=== PATIENT | female | born 1940 | race Two or more races ===

== ENCOUNTER 2024-12-18 18:28 | Inpatient (IN) | payer BC, OTHER ==
[~2024-12-18] VITALS: Ht 142.2 cm; Wt 73.1 kg
[2024-12-18] MEDS: FUROSEMIDE 40 MG/4 ML VIAL IV ONE (02:30)
--- NOTE | 2024-12-18 18:42 | ED.PDOC ---
History of Present Illness HPI Comments 84-year-old female brought in by ambulance after she had a ground level trip and fall outside and landed on the pavement. Patient complains of dull right shoulder and right knee pain. Patient bumped her forehead but denies loss of consciousness or headache or neck pain. Patient denies taking any blood thinn ers. Chief Complaint: Fall Injury Time Seen by MD: 18:32 Allergies: Coded Allergies: NO KNOWN ALLERGIES (Unverified , 12/18/24) Information Source: Patient, Emergency Med Personnel Mode of Arrival: EMS Severity: Moderate Timing: Minutes Duration: Since onset Past Medical History PAST MEDICAL HISTORY: Denies Social History Smoker: Non-Smoker Alcohol: Denies ETOH Use Drugs: Denies Drug Use EENTM: reports: others (Contusion/abrasion to forehead) Musculoskeletal: reports: others (Right shoulder pain and right knee pain) Integumetry: reports: others (Contusion and superficial abrasions to the right knee and right lower leg and forehead) All Other Systems: Reviewed and Negative Physical Exam General Appearance: Moderate Distress HEENT: Normal ENT Inspection, Pharynx Normal, TMs Normal Neck: Full Range of Motion, Non-Tender, Normal, Normal Inspection Respiratory: Chest Non-Tender, Lungs Clear, No Accessory Muscle Use, No Respiratory Distress, Normal Breath Sounds Cardiovascular: No Edema, No JVD, No Murmur, No Gallop, Normal Peripheral Pulses, Regular Rate/Rhythm Breast Exam: Deferred Gastrointestinal: No Organomegaly, Non Tender, No Pulsatile Mass, Normal Bowel Sounds, Soft Genitalia: Deferred Pelvic: Deferred Rectal: Deferred Extremities: Tender Musculoskeletal : Apperance: Normal Neurologic: Alert, practice lead II-XII nml as Tested, No Motor Deficits, Normal Affect, Normal Mood, No Sensory Deficits Cerebellar Function: Normal Reflexes: Normal Skin: Other (Contusions and abrasions to forehead, right knee and right lower leg) Lymphatic: No Adenopathy Was a procedure done? Was a procedure done?: No Differential Dx Considerations may include: Differential diagnosis includes but not limited to: Bony fracture, dislocation, neurovascular injury, compartment syndrome, intracranial injury and others X-Ray, Labs, Meds, VS Vital Signs Date Time Temp Pulse Resp B/P (MAP) Pulse Ox O2 Delivery O2 Flow Rate FiO2 12/18/24 20:34 76 18 128/76 (93) 98 12/18/24 20:34 98 Room Air* 0 21 12/18/24 18:31 98.4 65 18 173/83 94 98.4 Lab Test 12/18/24 19:48 Range/Units White Blood Count 6.1 4.4-10.8 10^3/uL Red Blood Count 4.17 4.0-5.20 10^6/uL Hemoglobin 13.4 12.2-16.2 g/dL Hematocrit 39.2 36.0-46.0 % Mean Corpuscular Volume 93.8 80.0-100.0 fL Mean Corpuscular Hemoglobin 32.1 H 28.0-32.0 pg Mean Corpuscular Hemoglobin Concent 34.2 32.0-36.0 g/dL Red Cell Distribution Width 13.9 11.8-14.3 % Platelet Count 240 140-450 10^3/uL Mean Platelet Volume 7.8 6.9-10.8 fL Neutrophils (%) (Auto) 68.3 37.0-80.0 % Lymphocytes (%) (Auto) 22.8 10.0-50.0 % Monocytes (%) (Auto) 6.5 0.0-12.0 % Eosinophils (%) (Auto) 1.3 0.0-7.0 % Basophils (%) (Auto) 1.1 0.0-2.0 % Neutrophils # (Auto) 4.1 1.6-8.6 10 ^3/uL Lymphocytes # (Auto) 1.4 0.4-5.4 10 ^3/uL Monocytes # (Auto) 0.4 0-1.3 10 ^3/uL Eosinophils # (Auto) 0.1 0-0.8 10 ^3/uL Basophils # (Auto) 0.1 0-0.2 10 ^3/uL Nucleated Red Blood Cells 0.1 % Prothrombin Time 10.7 9.3-11.8 sec Prothrombin Time INR 1.01 0.9-1.15 Activated Partial Thromboplast Time 32.5 24.5-34.5 SEC Sodium Level 134 L 136-145 mmol/L Potassium Level 3.9 3.5-5.1 mmol/L Chloride Level 97 L 98-107 mmol/L Carbon Dioxide Level 27 20-31 mmol/L Anion Gap 10 5-15 Blood Urea Nitrogen 15 9-23 mg/dL Creatinine 0.75 0.550-1.02 mg/dL Glomerular Filtration Rate Calc 78 >90 mL/min BUN/Creatinine Ratio 20.0 10.0-20.0 Serum Glucose 102 74-106 mg/dL Calcium Level 9.4 8.7-10.4 mg/dL Total Bilirubin 1.6 H 0.2-1.0 mg/dL Aspartate Amino Transferase (AST) 23 13-40 U/L Alanine Aminotransferase (ALT) 16 7-40 U/L Alkaline Phosphatase 69 46-116 U/L Total Protein 7.4 5.7-8.2 g/dL Albumin 4.4 3.2-4.8 g/dL Time of 1ST Reevaluation: 18:41 Reevaluation 1ST: Unchanged Patient Education/Counseling: Diagnosis, Treatment Family Education/Counseling: No Family Present SEPSIS Sepsis Screen Physician Orders R Shoulder 2+ View Xray (12/18/24 18:37) R Knee 3v Xray (12/18/24 18:37) Chest Portable (12/18/24 19:40) Electrocardigram (12/18/24 19:40) * Orthopedic Consult (12/18/24 19:40) Hydrocodone-Acet 10/325mg Tab ([place] 10/ (12/18/24 21:00) Vital Signs Date Time Temp Pulse Resp B/P (MAP) Pulse Ox O2 Delivery O2 Flow Rate FiO2 12/18/24 20:34 76 18 128/76 (93) 98 12/18/24 20:34 98 Room Air* 0 21 12/18/24 18:31 98.4 65 18 173/83 94 98.4 Laboratory Tests Test 12/18/24 19:48 White Blood Count 6.1 10^3/uL (4.4-10.8) Departure 1 Departure Time of Disposition: 20:56 Impression: Primary Impression: Closed fracture of right proximal humerus Additional Impressions: Head injury Contusion of right knee Disposition: HOME / SELF CARE / HOMELESS Condition: Stable Discharged With: Self Comments 84-year-old woman who fell and has a right proximal humerus shoulder fracture that is comminuted and the pieces are displaced out of the shoulder joint. Plan will be to admit the patient for pain control and preop clearance and consult orthopedics. I attempted to consult with orthopedic doctor Jael Critical Care Note Critical Care Time?: No Stability Stability form required: No Heart Score Heart Score: Heart Score Response (Comments) Value History N/A 0 EKG N/A 0 Age N/A 0 Risk Factors N/A 0 Troponin N/A 0 Total 0 YASMIN NEVAREZ MD Dec 18, 2024 18:42
--- NOTE | 2024-12-18 19:28 | DVH ---
CLINICAL INDICATION: pain s/p fall TECHNIQUE: XYXY R KNEE 3V XRAY Comparison: None FINDINGS/IMPRESSION: : There is no evidence of acute fracture or dislocation. Moderate to severe medial compartment degenerative changes with joint space narrowing and osteophytes. Soft tissues are unremarkable.
--- NOTE | 2024-12-18 19:29 | DVH ---
CLINICAL INDICATION: pain s/p fall TECHNIQUE: 3 radiographic views of the right shoulder were obtained. Comparison: None FINDINGS/IMPRESSION: Displaced comminuted fracture of the proximal right humerus questionable dislocation. Also appears to be a displaced fracture of the scapula.
[2024-12-18 19:59] LABS: Hematocrit 39.2 % (36.0-46.0); Hemoglobin 13.4 g/dL (12.2-16.2); Mean Corpuscular Hemoglobin 32.1 pg (28.0-32.0); Mean Corpuscular Volume 93.8 fL (80.0-100.0); Nucleated Red Blood Cells % 0.1 %
[2024-12-18 20:11] LABS: INR 1.01 (0.9-1.15); Partial Thromboplastin Time 32.5 SEC (24.5-34.5); Prothrombin Time 10.7 sec (9.3-11.8)
--- NOTE | 2024-12-18 20:18 | DVH ---
EXAM: XY CHEST PORTABLE HISTORY: chest pain TECHNIQUE: 1 view of the chest COMPARISON: XY R SHOULDER 2+ VIEW XRAY on DOS: 12/18/24 FINDINGS/IMPRESSION: LUNGS: Hazy alveolar opacification of the left lung base. Decreased lung volumes. Small possible left-sided pleural effusion. MEDIASTINUM: Mild possible cardiomegaly BONES: Transversely oriented proximal humeral head fracture, age-indeterminate. OTHER: None.
[2024-12-18 20:21] LABS: Alanine Aminotransferase 16 U/L (7-40); Albumin 4.4 g/dL (3.2-4.8); Alkaline Phosphatase 69 U/L (46-116); Anion Gap 10 (5-15); BUN/Creatinine Ratio 20.0 (10.0-20.0); Blood Urea Nitrogen 15 mg/dL (9-23); Calcium 9.4 mg/dL (8.7-10.4); Carbon Dioxide 27 mmol/L (20-31); Glucose 102 mg/dL (74-106); Potassium 3.9 mmol/L (3.5-5.1); Total Protein 7.4 g/dL (5.7-8.2)
[2024-12-18 20:34] VITALS: O2SAT 98
[2024-12-18 20:37] LABS: Bilirubin, Total 1.6 mg/dL (0.2-1.0); Chloride 97 mmol/L (98-107); Sodium 134 mmol/L (136-145)
[2024-12-18] MEDS: HYDROcodone-ACET 10/325MG TAB PO PRN (21:06)
[2024-12-18] MEDS ORDERED: ONDANSETRON HCL 4 MG/2 ML VIAL IV PRN (22:30)
--- NOTE | 2024-12-18 22:44 | DVHHPRES ---
History of Present Illness Resident Creating Document: ALOK WARNER RESIDENT History of Present Illness This is 84-year-old female with a past medical history of anxiety disorder, chronic back pain and GERD symptoms, who has come to the ED after a fall injury causing pain in her right shoulder. Patient reports that she tripped today afternoon in the parking curb and fell face forward, hitting her head on the sidewalk. She also reports that she had sudden sharp pain in her right shoulder which was 10/10 in intensity, radiating towards the elbow and back, with no relieving factors. she denies any dizziness before the fall but attributes the fall due to missed step and loss of concentration ( she was focused on her dog in the car getting out). post fall patient denies any loss of consciousness, dizziness, nausea, vomiting, change in mentation, chest pain, shortness of breath or tingling sensation in any extremity. On initial assessment patient's blood pressure was high 173/83 mmHg which decreased after a dose of [place] to 128/70 mmHg. Rest of the vitals are normal temp 98.4, HR 76, RR 18, SpO2 98% in room air. We are admitting the patient for further workup and management. PMH: As stated above PSH: Left shoulder surgery due to fall 3 years ago Social history: Patient denies smoking, alcohol or any illicit drug abuse. Lives with her Family history: 2 brothers had diabetes mellitus Home medications: Escitalopram for anxiety, furosemide, Protonix, aspirin 81 mg, [place] 5/325 mg Allergies: None PCP: Dr. Casanova (in [place]) Code status: Full code Review of Systems Constitutional: No: Fever, Chills, Sweats, Weakness, Malaise, Other Eyes: No: Pain, Vision change, Conjunctivae inflammation, Eyelid inflammation, Other, Redness ENT: No: Ear pain, Ear discharge, Nose pain, Nose discharge, Nose congestion, Mouth pain, Mouth swelling, Throat pain, Throat swelling, Other Respiratory: No: Cough, Dry, Shortness of breath, SOB with excertion, Wheezing, Hemoptysis, Pleuritic Pain, Sputum, Wheezing, Other Cardiovascular: No: Chest Pain, Palpitations, Orthopnea, Paroxysmal Noc. Dyspnea, Edema, Lt Headedness, Other Gastrointestinal: No: Nausea, Vomiting, Abdominal Pain, Diarrhea, Constipation, Melena, Hematochezia, Other Genitourinary: No Dysuria, No Frequency, No Incontinence, No Hematuria, No Retention, No Other Musculoskeletal: shoulder pain, back pain; No: other, neck pain, arm pain, hand pain, leg pain, foot pain Skin: No: Rash, Lesions, Jaundice, Bruising, Other Neurological: No: Weakness, Numbness, Incoordination, Change in speech, Confusion, Seizures, Other Allergies: Coded Allergies: NO KNOWN ALLERGIES (Unverified , 12/18/24) Medications Current Medications Medications Dose Ordered Sig/Moise Route Start Time Stop Time Status Last Admin Dose Admin Acetaminophen/ Hydrocodone Bitart 1 tab Q4HPRN PRN PO 12/18/24 21:00 12/18/24 21:06 1 TAB Ondansetron HCl 4 mg Q4HP PRN IV 12/18/24 22:30 UNV Acetaminophen/ Hydrocodone Bitart 1 tab Q4HPRN PRN PO 12/18/24 22:30 UNV Hydromorphone HCl 0.25 mg Q4HPRN PRN IV 12/18/24 22:30 UNV Citalopram Hydrobromide 10 mg DAILY PO 12/19/24 10:00 UNV Pantoprazole Sodium 40 mg DAILY IV 12/19/24 10:00 UNV Exam Vital Signs Vital Signs Date Time Temp Pulse Resp B/P (MAP) Pulse Ox O2 Delivery O2 Flow Rate FiO2 12/18/24 20:34 76 18 128/76 (93) 98 12/18/24 20:34 Room Air* 0 21 12/18/24 18:31 98.4 98.4 Exam Pt is lying on bed General Appearance: Alert, Oriented X3, Cooperative, in acute distress HEENT: Atraumatic, Mucous membranes moist/pink Respiratory: Clear to auscultation, Normal air movement, No added sounds Cardiovascular: Regular rate, Normal S1, Normal S2, No murmurs Abdominal: Active bowel sounds, Soft, no distention, no tenderness Extremities: No edema, Normal pulses, severe tenderness in the right shoulder, right arm and back on mild palpation Skin: No Significant rash, except past surgical scars Neuro: Normal speech, sensorimotor deficits none Psych/Mental Status: Mental status NL, Mood NL Labs/Xrays Labs Test 12/18/24 19:48 Range/Units White Blood Count 6.1 4.4-10.8 10^3/uL Red Blood Count 4.17 4.0-5.20 10^6/uL Hemoglobin 13.4 12.2-16.2 g/dL Hematocrit 39.2 36.0-46.0 % Mean Corpuscular Volume 93.8 80.0-100.0 fL Mean Corpuscular Hemoglobin 32.1 H 28.0-32.0 pg Mean Corpuscular Hemoglobin Concent 34.2 32.0-36.0 g/dL Red Cell Distribution Width 13.9 11.8-14.3 % Platelet Count 240 140-450 10^3/uL Mean Platelet Volume 7.8 6.9-10.8 fL Neutrophils (%) (Auto) 68.3 37.0-80.0 % Lymphocytes (%) (Auto) 22.8 10.0-50.0 % Monocytes (%) (Auto) 6.5 0.0-12.0 % Eosinophils (%) (Auto) 1.3 0.0-7.0 % Basophils (%) (Auto) 1.1 0.0-2.0 % Neutrophils # (Auto) 4.1 1.6-8.6 10 ^3/uL Lymphocytes # (Auto) 1.4 0.4-5.4 10 ^3/uL Monocytes # (Auto) 0.4 0-1.3 10 ^3/uL Eosinophils # (Auto) 0.1 0-0.8 10 ^3/uL Basophils # (Auto) 0.1 0-0.2 10 ^3/uL Nucleated Red Blood Cells 0.1 % Prothrombin Time 10.7 9.3-11.8 sec Prothrombin Time INR 1.01 0.9-1.15 Activated Partial Thromboplast Time 32.5 24.5-34.5 SEC Sodium Level 134 L 136-145 mmol/L Potassium Level 3.9 3.5-5.1 mmol/L Chloride Level 97 L 98-107 mmol/L Carbon Dioxide Level 27 20-31 mmol/L Anion Gap 10 5-15 Blood Urea Nitrogen 15 9-23 mg/dL Creatinine 0.75 0.550-1.02 mg/dL Glomerular Filtration Rate Calc 78 >90 mL/min BUN/Creatinine Ratio 20.0 10.0-20.0 Serum Glucose 102 74-106 mg/dL Calcium Level 9.4 8.7-10.4 mg/dL Total Bilirubin 1.6 H 0.2-1.0 mg/dL Aspartate Amino Transferase (AST) 23 13-40 U/L Alanine Aminotransferase (ALT) 16 7-40 U/L Alkaline Phosphatase 69 46-116 U/L Total Protein 7.4 5.7-8.2 g/dL Albumin 4.4 3.2-4.8 g/dL SEPSIS Sepsis Screen Date sepsis recognized/suspect: Dec 18, 2024 Time Sepsis recognized/suspect: 1830 Recent Procedure: No On Antibiotic Therapy: No Respiratory Rate >20: No Heart Rate >90: No Temp<36 C (96.8 F) or >38.3 C: No SBP <90 or MAP <65 mmHG: No New Acute Mental Status Change: No Is the patient on CPAP, BIPAP,: No Physician Orders R Shoulder 2+ View Xray (12/18/24 18:37) R Knee 3v Xray (12/18/24 18:37) Chest Portable (12/18/24 19:40) Electrocardigram (12/18/24 19:40) * Orthopedic Consult (12/18/24 19:40) Hydrocodone-Acet 10/325mg Tab ([place] 10/ (12/18/24 21:00) Admit (12/18/24 22:23) Code Status (12/18/24 22:23) Ondansetron Hcl (Zofran) (12/18/24 22:30) Complete Blood Count (12/19/24 04:00) Comprehensive Metabolic Panel (12/19/24 04:00) Npo (Nothing By Mouth) Diet (12/19/24 Breakfast) Condition: Unstable (12/18/24 22:23) Hydrocodone-Acet 5/325mg Tab ([place] 5/32 (12/18/24 22:30) Hydromorphone Injection (Dilaudid Inject (12/18/24 22:30) Hydromorphone Injection (Dilaudid Inject (12/18/24 22:30) Furosemide Injection (Lasix Injection) (12/18/24 22:30) B-Type Natriuretic Peptide (12/18/24 22:23) Citalopram Tablet (Celexa Tablet) (12/19/24 10:00) Pantoprazole (Protonix) (12/18/24 22:30) Pantoprazole (Protonix) (12/19/24 10:00) Urinalysis (12/18/24 22:23) Head Without Contrast (12/18/24 22:23) Electrocardigram (12/18/24 22:23) Echo 2d Mode Cardiac Dop (12/18/24 22:23) Type And Screen (12/18/24 22:23) Vital Signs Date Time Temp Pulse Resp B/P (MAP) Pulse Ox O2 Delivery O2 Flow Rate FiO2 12/18/24 20:34 76 18 128/76 (93) 98 12/18/24 20:34 98 Room Air* 0 21 12/18/24 18:31 98.4 65 18 173/83 94 98.4 Laboratory Tests Test 12/18/24 19:48 White Blood Count 6.1 10^3/uL (4.4-10.8) Medications Medications Dose Ordered Sig/Moise Route Start Time Stop Time Status Last Admin Dose Admin Acetaminophen/ Hydrocodone Bitart 1 tab Q4HPRN PRN PO 12/18/24 21:00 12/18/24 21:06 1 TAB Assessment/Plan Assessment/Plan #Displaced comminuted fracture of proximal right humerus S/P mechanical fall #Displaced fracture of the scapula S/P mechanical fall -x-ray right shoulder shows Displaced comminuted fracture of the proximal right humerus questionable dislocation. Also appears to be a displaced fracture of the scapula. -X-ray knee shows Moderate to severe medial compartment degenerative changes with joint space narrowing and osteophytes. -PT 10.7, INR 1.01, APTT 32.5 -type and crossmatch -NPO status -CT head -orthopedic consult -patient in pain, unable to mobilize much-Nagy's catheter placed #Small left-sided pleural effusion -Chest x-ray shows: Hazy alveolar opacification of the left lung base. Decreased lung volumes and Small left-sided pleural effusion -IV furosemide 40 mg -EKG -BNP #Hyperbilirubinemia -total bilirubin 1.6 -monitor #Hypertension - blood pressure normal now, patient does not take home medications #Obesity, BMI 31.4 kg/m2 - patient has been counseled regarding the need of weight loss, healthier lifestyle, dietary modification for over it minutes GI prophylaxis: Protonix 40 mg IV daily DVT prophylaxis: Held for now as there may be possible surgery Diet: NPO Goals of care discussed with the patient for more than 27 minutes: Full code status Case discussed with , patient Plan discussed with: Patient My Orders Orders - ALOK WARNER RESIDENT Procedure Category Date Status Time Admit ADMIT 12/18/24 Transmitted 22:23 Code Status CODE 12/18/24 Transmitted 22:23 Ondansetron Hcl PHA 12/18/24 Logged (Zofran) 22:30 Complete Blood Count LAB 12/19/24 Verified 04:00 Comprehensive LAB 12/19/24 Verified Metabolic Panel 04:00 Npo (Nothing By DIET 12/19/24 Transmitted Mouth) Diet Breakfast Condition: Unstable DYLAN 12/18/24 In Process 22:23 Hydrocodone-Acet PHA 12/18/24 Logged 5/325mg Tab ([place] 22:30 Hydromorphone PHA 12/18/24 Logged Injection (Dilaudid 22:30 Hydromorphone PHA 12/18/24 Logged Injection (Dilaudid 22:30 Furosemide Injection PHA 12/18/24 Logged (Lasix Injection) 22:30 B-Type Natriuretic LAB 12/18/24 Logged Peptide 22:23 Citalopram Tablet PHA 12/19/24 Logged (Celexa Tablet) 10:00 Pantoprazole PHA 12/18/24 Logged (Protonix) 22:30 Pantoprazole PHA 12/19/24 Logged (Protonix) 10:00 Urinalysis LAB 12/18/24 Logged 22:[address] 12/18/24 Logged 22:23 Electrocardigram EKG 12/18/24 Logged 22:23 Echo 2d Mode Cardiac US 12/18/24 Logged DOP 22:23 Type And Screen BBK 12/18/24 Logged 22:23 Date of Service: Dec 18, 2024 Billing Provider: TIERA MANCINI MD Common Visit Codes: [id number] INP/OBS CARE (HIGH) Secondary Visit Codes: [id number] CARE PLAN 30 MINUTES ALOK WARNER Dec 18, 2024 22:44
--- NOTE | 2024-12-18 23:43 | DVH ---
CLINICAL HISTORY: head injury TECHNIQUE: Helical imaging carried out from skull base to vertex without intravenous contrast. This exam was performed according to our departmental dose optimization program. Up-to-date CT equipment and radiation dose reduction techniques are utilized as appropriate. CTDIVol: 52.03 mGy DLP: 863.9 mGy-cm WID: COMPARISON: None FINDINGS: Generalized cerebral volume loss with concordant prominence of the subarachnoid spaces and ventricles. Mild patchy low attenuation in the cerebral white matter consistent with nonspecific white matter disease. There is no midline shift or mass effect. The gore white matter interfaces are maintained. The basal cisterns are patent. There is no evidence of acute intracranial hemorrhage or extra-axial fluid collection. The mastoid air cells and visualized paranasal sinuses are well-aerated. IMPRESSION: 1. No acute intracranial abnormality. 2. Mild cerebral volume loss and mild chronic microvascular ischemic change.
[2024-12-18] MEDS: HYDROmorphone HCL 2 MG/ML VL/or syr IV ONE (23:45)
[2024-12-18] MEDS: PANTOPRAZOLE 40 MG/10 ML VIAL INJ IV ONE (23:57)
[2024-12-19] VITALS (7 sets, daily range): BP systolic 107–156; BP diastolic 46–82; PULSE 64–71; RESP 15–18; TEMP 97.5–98.6; O2SAT 90–98
[2024-12-19] MEDS: HYDROcodone-ACET 10/325MG TAB PO PRN (01:39)
[2024-12-19 03:19] LABS: Urine Protein, UAD Negative (Negative)
[2024-12-19] MEDS ORDERED: ASPI81CH49 PO (03:43)
[2024-12-19] MEDS ORDERED: ESCI1TAB36 PO (03:43)
[2024-12-19] MEDS ORDERED: SIMV20TA20 PO (03:43)
[2024-12-19] MEDS ORDERED: HYDR1TAB97 PO (03:43)
[2024-12-19] MEDS: HYDROmorphone HCL 2 MG/ML VL/or syr IV PRN (04:03)
[2024-12-19 06:01] LABS: Hematocrit 35.5 % (36.0-46.0); Hemoglobin 12.2 g/dL (12.2-16.2); Mean Corpuscular Hemoglobin 32.2 pg (28.0-32.0); Mean Corpuscular Volume 93.7 fL (80.0-100.0); Nucleated Red Blood Cells % 0.1 %
[2024-12-19 06:33] LABS: Alanine Aminotransferase 14 U/L (7-40); Albumin 4.0 g/dL (3.2-4.8); Alkaline Phosphatase 60 U/L (46-116); Anion Gap 9 (5-15); BUN/Creatinine Ratio 19.2 (10.0-20.0); Blood Urea Nitrogen 14 mg/dL (9-23); Calcium 8.8 mg/dL (8.7-10.4); Carbon Dioxide 28 mmol/L (20-31); Potassium 3.9 mmol/L (3.5-5.1); Total Protein 6.6 g/dL (5.7-8.2)
[2024-12-19 06:34] LABS: Bilirubin, Total 2.1 mg/dL (0.2-1.0); Chloride 96 mmol/L (98-107); Glucose 111 mg/dL (74-106); Sodium 133 mmol/L (136-145)
[2024-12-19] MEDS: PANTOPRAZOLE 40 MG/10 ML VIAL INJ IV SCH (09:26)
[2024-12-19] MEDS: CITALOPRAM HYDROBR 20 MG TAB PO SCH (09:26)
--- NOTE | 2024-12-19 12:29 | DVH ---
CLINICAL INDICATION: preop planning TECHNIQUE: Noncontrast CT of the right shoulder was performed. Sagittal and coronal reformatted images are provided. COMPARISON: Radiograph of the right shoulder dated 12/18/2024. CT Dose: CTDI volume is 18.92 mGy. Dose-length product is 479.84 mGy*cm FINDINGS: There is an acute comminuted fracture through the proximal humerus. The fracture involves the greater tuberosity, surgical and anatomical neck of the humerus and the lesser tuberosity. The fractured humeral head remains articulated with the glenoid without dislocation. Mild inferior subluxation of the humeral head relative to the glenoid due to joint effusions/hemoarthrosis. There is acromioclavicular joint space narrowing. Soft tissue swelling in the right shoulder. Small right pleural effusion. Visualized Right-sided ribs are intact. IMPRESSION: 1. Acute comminuted fracture of the proximal humerus involving the greater and lesser tuberosities, surgical and anatomical necks. No dislocation. All CT scans at this medical facility are performed using dose modulation techniques as appropriate to a performed exam including the following: Automated exposure control was utilized; adjustment of the MA and/or KV according to patient size; and use of iterative reconstruction technique.
--- NOTE | 2024-12-19 13:32 | DVHPN2 ---
Reviewed: Care Plan, H&P, Labs, Medications, Previous Orders, Radiology Changes from previous H/P or p: No Changes Eyes: No Pain, No Vision change, No Conjunctivae inflammation, No Eyelid inflammation, No Other, No Redness ENT: No Ear pain, No Ear discharge, No Nose pain, No Nose discharge, No Nose congestion, No Mouth pain, No Mouth swelling, No Throat pain, No Throat swelling, No Other Cardiovascular: No Chest Pain, No Palpitations, No Orthopnea, No Paroxysmal Noc. Dyspnea, No Edema, No Lt Headedness, No Other Respiratory: No Cough, No Dry, No Shortness of breath, No SOB with excertion, No Wheezing, No Hemoptysis, No Pleuritic Pain, No Sputum, No Other Gastrointestinal: No Nausea, No Vomiting, No Abdominal Pain, No Diarrhea, No Constipation, No Melena, No Hematochezia, No Other Genitourinary: No Dysuria, No Frequency, No Incontinence, No Hematuria, No Retention, No Other Musculoskeletal: No other, No neck pain; shoulder pain; No arm pain; back pain; No hand pain, No leg pain, No foot pain Skin: No Rash, No Lesions, No Jaundice, No Bruising, No Other Objective Vitals Vital Signs Date Time Temp Pulse Resp B/P (MAP) Pulse Ox O2 Delivery O2 Flow Rate FiO2 12/19/24 09:26 84 18 124/63 12/19/24 09:00 98.6 92 98.6 12/19/24 00:45 Room Air* 0 21 Intake/Output Intake and Output 12/19/24 07:00 Intake Total 100 ml Output Total 750 ml Balance -650 ml Intake Oral 100 ml Output Urine Total 750 ml Medications Current Medications Medications Dose Ordered Sig/Moise Route Start Time Stop Time Status Last Admin Dose Admin Ondansetron HCl 4 mg Q4HP PRN IV 12/18/24 22:30 Acetaminophen/ Hydrocodone Bitart 1 tab Q4HPRN PRN PO 12/18/24 22:30 Hydromorphone HCl 0.25 mg Q4HPRN PRN IV 12/18/24 22:30 12/19/24 09:26 0.25 MG Citalopram Hydrobromide 10 mg DAILY PO 12/19/24 10:00 12/19/24 09:26 10 MG Pantoprazole Sodium 40 mg DAILY IV 12/19/24 10:00 12/19/24 09:26 40 MG Acetaminophen/ Hydrocodone Bitart 1 tab Q4HPRN PRN PO 12/18/24 23:00 12/19/24 11:13 1 TAB Laboratory Results Laboratory Tests 12/19/24 05:28 Chemistry Test 12/18/24 19:48 12/19/24 05:28 Albumin 4.4 g/dL (3.2-4.8) 4.0 g/dL (3.2-4.8) Calcium Level 9.4 mg/dL (8.7-10.4) 8.8 mg/dL (8.7-10.4) Total Protein 7.4 g/dL (5.7-8.2) 6.6 g/dL (5.7-8.2) Coagulation Test 12/18/24 19:48 Prothrombin Time 10.7 sec (9.3-11.8) Prothrombin Time INR 1.01 (0.9-1.15) Activated Partial Thromboplast Time 32.5 SEC (24.5-34.5) Cardiac Markers Test 12/18/24 19:48 B-Type Natriuretic Peptide 52.11 pg/mL (0-100) LFT Test 12/18/24 19:48 12/19/24 05:28 Alanine Aminotransferase (ALT) 16 U/L (7-40) 14 U/L (7-40) Alkaline Phosphatase 69 U/L (46-116) 60 U/L (46-116) Aspartate Amino Transferase (AST) 23 U/L (13-40) 18 U/L (13-40) Total Bilirubin 1.6 mg/dL (0.2-1.0) H 2.1 mg/dL (0.2-1.0) H Urinalysis Test 12/18/24 02:00 Urine Color Yellow (Yellow) Urine Clarity Clear (Clear) Urine pH 6.5 (5.0-9.0) Urine Specific [place] 1.021 (1.001-1.035) Urine Protein Negative (Negative) Urine Ketones 2+ (Negative) H Urine Blood Negative /uL (Negative) Urine Nitrite Negative (Negative) Urine Bilirubin Negative (Negative) Urine Urobilinogen Normal mg/dL (Negative) Urine Leukocyte Esterase Negative /uL (Negative) Urine RBC None seen /hpf (0 - 4) Urine Microscopic WBC < 1 /HPF (0-5) Urine Squamous Epithelial Cells None seen /hpf (<5) Urine Bacteria None seen /hpf (None Seen) Urine Glucose Normal mg/dL (Normal) Labs and/or images reviewed: Labs reviewed by me, Image(s) reviewed by me Assessment/Plan Assessment/Plan Acute displaced Community fracture proximal right humerus status post mechanical fall: Ortho consult by Dr. Elder appreciated pain medications Displaced fracture scapula status post fall Small left pleural effusion Hyperbilirubinemia bilirubin 1.6 Hypertension Depression: Celexa Obesity BMI of 46 Time spent 50 minutes Advanced care planning time 20 minutes Patient is full code Plan discussed with: Patient Date of Service: Dec 19, 2024 Billing Provider: VESTA PRIEST MD Common Visit Codes: [id number] INP/OBS CARE(HIGH) Secondary Visit Codes: [id number] CARE PLAN 30 MINUTES VESTA PRIEST MD Dec 19, 2024 13:32
[2024-12-19] MEDS: HYDROcodone-ACET 5/325MG TAB PO PRN (18:01)
--- NOTE | 2024-12-19 19:48 | DVHSR ---
APPROVED REPORT EXAM: Two-dimensional and M-mode echocardiogram with Doppler and color Doppler. Blood Pressure: 107/46 mmHg INDICATION Pulmonary Edema RISK FACTORS Height: 58, Weight: 208 DIMENSIONS LVDd 3.8 (3.8-5.7cm) LA (2D) 4.5 (1.9-4.0cm) Aortic Root 3.4 (2.0-3.7cm) LVDs 2.6 (2.5-4.0cm) LA (MM) (1.9-4.0cm) Aortic Cusp Exc 1.4 (1.5-2.0cm) EF (%) 63.0 (55-70%) Rt. Atrium 3.8 (1.9-4.0cm) Asc. Aorta cm IVSd 1.1 (0.7-1.1cm) RV (D) (1.8-2.4cm) PWd 0.8 (0.7-1.1cm) Mitral Valve Mitral Mitral Stenosis E wave 0.59m/s MV Mean GR. mmHg A wave 0.96m/s MV Peak GR. mmHg E/A ratio 0.6 2D MVA cm2 DECEL Time 253ms PRESS 1/2 Time 70ms IVRT ms Dop MVA 3.14cm2 Aortic Valve Aortic Valve Aortic Stenosis V1 1.51m/s AO Mean GR. 7mmHg V2 1.90m/s AO Peak GR. 14mmHg LVOT Diameter 1.8 (1.8-2.4cm) Doppler JAMAL 2.02cm2 Pulmonic Valve V2 1.63m/s Tricuspid Valve TR Velocity 2.69m/s RVSP 30mmHg Other Information Technically limited study due to body habitus. Conclusion Technically good study. Sinus rhythm. Left atrial enlargement. Mild mitral annular calcification. Normal aortic tricuspid and pulmonic valves. Left ventricular function is preserved at 65-70% with normal RV function. Mild TR. Right ventricular systolic pressure of 30 mmHg. No pericardial effusion masses or vegetations.
--- NOTE | 2024-12-19 20:01 | DVHINCON2 ---
Consult Note Consult Consult Note Subjective The patient was seen in the emergency room yesterday following a ground-level fall onto the right shoulder.Er physician completed X-rays demonstrated a comminuted proximal humerus fracture. The patient was admitted for pain control and orthopedic evaluation. Today, the patient was evaluated at bedside. Findings and treatment options were discussed in detail, including surgical versus nonsurgical management. Reverse total shoulder arthroplasty was recommended. Risks, benefits, alternatives, and complications of surgery were discussed exten sively with the patient, who verbalized understanding and consented to proceed. The patient reports history of hypertension, hyperlipidemia, anxiety, and GERD. Denies diabetes mellitus, anticoagulant use, or history of malignancy. Reports known osteoporosis. Objective General: Awake, alert, oriented 3. In mild distress due to pain. Right Upper Extremity: Visible swelling and ecchymosis over the proximal shoulder. Tenderness to palpation over the proximal humerus. Range of Motion: Severely limited at the right shoulder secondary to pain and fracture. Elbow, wrist, and hand ROM: Full and intact. Neurovascular Exam: Grossly intact distally; palpable radial pulse; capillary refill <2 sec. Axillary Nerve Exam: Sensation intact over the lateral deltoid region. Cardiopulmonary: Regular rate and rhythm; no respiratory distress. Abdomen: Soft, nontender. Extremities: No edema, no cyanosis. Imaging Right shoulder X-ray: Acute comminuted fracture of the proximal humerus involving the greater and lesser tuberosities, surgical and anatomical necks. No dislocation. ECHO: Completed today; pending final report for anesthesia clearance. Assessment: Right comminuted proximal humerus fracture , post ground-level fall. The patient is an appropriate candidate for reverse total shoulder arthroplasty (RTSA). Case discussed with sound effects person surgeon Dr. Rose who agrees with above plan Plan: 1. Surgical Management: Proceed with right reverse total shoulder arthroplasty with Dr. Rose tomorrow. 2. Pre-operative Preparation: DISCUSSED WITH BEDSIDE NURSE Patient NPO after midnight. ECHO and Clearence needed 3. DVT Prophylaxis: Hold anticoagulation today; sequential compression devices in use. 4. Pain Control: Continue current regimen; multimodal pain management. 5. Consent: Obtained after detailed discussion of procedure, alternatives, and all potential complications. Discussion of Surgical Risks (Reverse Total Shoulder Arthroplasty): The following risks, benefits, and alternatives were reviewed with the patient in detail: Common Risks: Pain, stiffness, and prolonged swelling Postoperative bleeding or hematoma Infection (superficial or deep prosthetic joint infection) Nerve injury (particularly axillary or musculocutaneous nerve) Blood vessel injury Prosthesis-related Risks: Dislocation or instability of the implant Loosening or mechanical failure of components Scapular notching Glenoid or humeral bone loss over time Periprosthetic fracture (intraoperative or postoperative) Systemic Risks: Deep vein thrombosis or pulmonary embolism Anesthetic complications (cardiac, pulmonary, allergic reactions) Wound-healing complications Chronic pain or incomplete recovery of range of motion Need for revision surgery in the future The patient demonstrated full understanding of the procedure and risks, and provided informed consent for surgery. Plan discussed with: Patient, Other (bedside nurse) Visit Coding Surgery Date of Service if different f: Dec 19, 2024 Billing Provider: GRISELDA BRAVO Surgery Visit Codes: 90193 - INP CONSULT <55 MIN GRISELDA BRAVO Dec 19, 2024 20:01
[2024-12-20] VITALS (13 sets, daily range): BP systolic 115–153; BP diastolic 65–79; PULSE 69–109; RESP 11–19; TEMP 98–98.9; O2SAT 87–97
[2024-12-20] MEDS: ceFAZolin 2 GM/D5W50ml 50 ML IV ONE (10:01)
--- NOTE | 2024-12-20 10:18 | DVHPN2 ---
Reviewed: Care Plan, H&P, Labs, Medications, Previous Orders, Radiology Changes from previous H/P or p: No Changes Eyes: No Pain, No Vision change, No Conjunctivae inflammation, No Eyelid inflammation, No Other, No Redness ENT: No Ear pain, No Ear discharge, No Nose pain, No Nose discharge, No Nose congestion, No Mouth pain, No Mouth swelling, No Throat pain, No Throat swelling, No Other Cardiovascular: No Chest Pain, No Palpitations, No Orthopnea, No Paroxysmal Noc. Dyspnea, No Edema, No Lt Headedness, No Other Respiratory: No Cough, No Dry, No Shortness of breath, No SOB with excertion, No Wheezing, No Hemoptysis, No Pleuritic Pain, No Sputum, No Other Gastrointestinal: No Nausea, No Vomiting, No Abdominal Pain, No Diarrhea, No Constipation, No Melena, No Hematochezia, No Other Genitourinary: No Dysuria, No Frequency, No Incontinence, No Hematuria, No Retention, No Other Musculoskeletal: No other, No neck pain; shoulder pain; No arm pain; back pain; No hand pain, No leg pain, No foot pain Skin: No Rash, No Lesions, No Jaundice, No Bruising, No Other Objective Vitals Vital Signs Date Time Temp Pulse Resp B/P (MAP) Pulse Ox O2 Delivery O2 Flow Rate FiO2 12/20/24 09:18 69 17 153/69 12/20/24 09:00 98.2 90 98.2 12/19/24 20:00 Nasal Cannula* 2 28 Intake/Output Intake and Output 12/20/24 07:00 Intake Total 1500 ml Output Total 750 ml Balance 750 ml Intake Oral 1500 ml Output Urine Total 750 ml Medications Current Medications Medications Dose Ordered Sig/Moise Route Start Time Stop Time Status Last Admin Dose Admin Ondansetron HCl 4 mg Q4HP PRN IV 12/18/24 22:30 Acetaminophen/ Hydrocodone Bitart 1 tab Q4HPRN PRN PO 12/18/24 22:30 12/19/24 18:01 1 TAB Hydromorphone HCl 0.25 mg Q4HPRN PRN IV 12/18/24 22:30 12/20/24 09:18 0.25 MG Citalopram Hydrobromide 10 mg DAILY PO 12/19/24 10:00 12/19/24 09:26 10 MG Pantoprazole Sodium 40 mg DAILY IV 12/19/24 10:00 12/20/24 08:59 40 MG Acetaminophen/ Hydrocodone Bitart 1 tab Q4HPRN PRN PO 12/18/24 23:00 12/20/24 07:48 1 TAB Laboratory Results Laboratory Tests 12/19/24 05:28 Urinalysis Test 12/18/24 02:00 Urine Color Yellow (Yellow) Urine Clarity Clear (Clear) Urine pH 6.5 (5.0-9.0) Urine Specific [place] 1.021 (1.001-1.035) Urine Protein Negative (Negative) Urine Ketones 2+ (Negative) H Urine Blood Negative /uL (Negative) Urine Nitrite Negative (Negative) Urine Bilirubin Negative (Negative) Urine Urobilinogen Normal mg/dL (Negative) Urine Leukocyte Esterase Negative /uL (Negative) Urine RBC None seen /hpf (0 - 4) Urine Microscopic WBC < 1 /HPF (0-5) Urine Squamous Epithelial Cells None seen /hpf (<5) Urine Bacteria None seen /hpf (None Seen) Urine Glucose Normal mg/dL (Normal) Labs and/or images reviewed: Labs reviewed by me, Image(s) reviewed by me Assessment/Plan Assessment/Plan Acute displaced Community fracture proximal right humerus status post mechanical fall: Patient getting reverse total shoulder arthroplasty (RTSA) by Dr Rose today. Displaced fracture scapula status post fall Small left pleural effusion Hyperbilirubinemia bilirubin 1.6 Hypertension Depression: Celexa Obesity BMI of 46 Time spent 50 minutes Advanced care planning time 20 minutes Patient is full code Plan discussed with: Patient Date of Service: Dec 20, 2024 Billing Provider: VESTA PRIEST MD Common Visit Codes: [id number] INP/OBS CARE(HIGH) VESTA PRIEST MD Dec 20, 2024 10:18
[2024-12-20] MEDS: VANCOMYCIN HCL 1000 MG VL ONE ×2 (12:00→12:38)
[2024-12-20] MEDS: ROPIVACAINE 0.5% (5MG/ML) 20ML AMPULE IJ ONE (12:00)
[2024-12-20] MEDS: BUPIVACAINE 0.25% INJ 50ML VIAL ONE (12:01)
[2024-12-20] MEDS ORDERED: MIDAZOLAM HCL 2MG/2ML 2ml VIAL (1mg/ml) ONE (12:02)
[2024-12-20] MEDS ORDERED: HYDROmorphone HCL 2 MG/ML VL/or syr ONE (12:02)
[2024-12-20] MEDS ORDERED: fentaNYL CITRATE 100 MCG/2 ML VL ONE ×2 (12:02→14:15)
[2024-12-20] MEDS ORDERED: ONDANSETRON HCL 4 MG/2 ML VIAL ONE (12:03)
[2024-12-20] MEDS: SUCCINYLCHOLINE CHLORIDE 20 MG/ML 10ML VIAL IV ONE (12:05)
[2024-12-20] MEDS ORDERED: MORPHINE SULF PF 5 MG/10 ML VIAL ONE (12:05)
[2024-12-20] MEDS ORDERED: KETOROLAC TROMETH 30 MG/ML 1ML VIAL ONE (12:05)
[2024-12-20] MEDS: CEFEPIME 1GM/50ML 50 ML IV ONE (12:25)
[2024-12-20] MEDS: TRANEXAMIC ACID 20 ML ONE (12:35)
[2024-12-20] MEDS ORDERED: MIDAZOLAM HCL 2MG/2ML 2ml VIAL (1mg/ml) IV PRN (13:15)
[2024-12-20] MEDS ORDERED: hydrALAZINE HCL 20 MG/ML VL IV PRN (13:15)
[2024-12-20] MEDS ORDERED: HYDROmorphone HCL 2 MG/ML VL/or syr IV PRN (13:15)
[2024-12-20] MEDS ORDERED: MORPHINE SULFATE 4 MG/ML SYR/VIAL IV PRN (13:15)
[2024-12-20] MEDS ORDERED: ONDANSETRON HCL 4 MG/2 ML VIAL IV PRN (13:15)
[2024-12-20] MEDS ORDERED: SUGAMMADEX 200mg/2ml Vial (100MG/ML) IV ONE (14:47)
[2024-12-20] MEDS ORDERED: ROCURONIUM 10MG/ML 10ML VIAL IV ONE (14:51)
--- NOTE | 2024-12-20 15:08 | DVHOP2 ---
Operative Report - 2 Report Details Date: 12/20/24 Preop Diagnosis: Right proximal humerus comminuted fracture Postop Diagnosis: Right proximal humerus comminuted fracture Surgeon: Shelley Rose MD Showroom Consultant: Mayra Humphrey, Physician Showroom Consultant Anesthesiologist: Dr Randolph Anesthesia: General Implant: Butler perform fracture stem size 1 36 mm glenosphere, 0 mm constrained liner, 25 mm base plate with central 35 mm screw and four peripheral screws. Consent: The patient was informed of the risks and benefits of the procedure. These include but are not limited to complications of anesthesia, postoperative infection, incomplete relief of symptoms, recurrence of symptoms, damage to blood vessels, nerves and tendons, deep venous thrombosis, pulmonary embolism and possible need for repeat surgery in the future. Complications: None Estimated Blood Loss: Less than 100 mL Indications for Surgery: The patient is an 84-year-old female who presented to the emergency room with a proximal comminuted head split fracture. Nonoperative and operative management options were discussed. Nonoperative management were thoroughly discussed and recommended as the 1st line of treatment. However patient mentioned that she is very active with minimal medical problems. Surgical complications including neurovascular injury, dislocation, periprosthetic fracture at her age, loss of limb or life was explicitly discussed. Inability to wake up from anesthesia, on the table and very high risk of mortality in 30 days was discussed with her and her by myself at chemical strength tester and also the physician magistrate assistant the night before. Pros and cons were discussed. She wanted a functional limb and was willing to take the risks associated with the surgery. She decided to proceed with the surgery. Name of Procedure Performed Right reverse total shoulder arthroplasty with open biceps tenodesis Procedure Details Procedure Details: The patient was identified in the preoperative holding area and the surgical site was marked. The consent was verified. The patient was brought into the operating room and placed supine on the operating table. General anesthesia was administered. The patient was brought into the beachchair position at 60 degrees angle. The extremity was prepped and draped in the usual sterile manner with Betadine and ChloraPrep. A timeout was called out to confirm the identity of the patient, the nature of surgery, the site of surgery, development of implants and x-rays and allergies to medications. All the bony prominences were appropriately padded Exposure: An extended deltopectoral approach was used. An incision was made from 1 cm superior to the coracoid to the upper arm lateral to the axillary line. The skin and the subcutaneous tissue were dissected. The deep fascia was incised. The cephalic vein was identified. The coracoid was identified and the conjoined tendon was also identified. The pectoralis tendon was identified. The biceps tendon was identified and tenodesis was carried out. This was sutured to the pectoralis major tendon with the help of FiberWire suture and was cut proximally. Teague retractors were inserted. Adequate exposure was noted. The deltoid was released with the help of a Umaña elevator for better exposure. The subscapularis tendon was identified. Some of it was attached to the lesser tuberosity that was still intact. This was whipstitched for later identification and possible repair. The humeral head was exposed. The fracture fragment was displaced medially into the axilla. This was carefully dissected from the soft tissue around it. A Umaña retractor was placed between the humeral head fracture and the axillary artery. Very carefully the capsule was detached off the humeral head fragment. Significant time and efforts were put into identifying the critical neurovascular structures. The axillary nerve was palpated and was visualized as well. This was intact. There was a fragment that was displaced inferiorly and posteriorly that was discarded as well. The greater tuberosity was identified and three Nice loops were passed around it. Because of patient's small size, three sutures were considered to be enough. Glenoid exposure and implantation of glenoid prosthesis: A Darrach retractor was then inserted to retract the humeral head and expose the glenoid. Release of the anterior and posterior capsule was carried out. Release of the middle and inferior glenohumeral ligament was carried out. Superior labrum and biceps were removed. The articular cartilage was intact. A tug test was performed to confirm the position of the axillary nerve which was out of the surgical field. The inferior capsule was left intact and was released only with the help of a blunt elevator. Next, the center of the glenoid was marked with the help of a Bovie using the biceps and the coracoid as landmarks. Next a guide was inserted, a guidewire was inserted through the central portion. This was found to be in anatomic location, slightly inferior to the center. Next the central reamer was inserted. Next the hand-held peripheral reamer was inserted. The periphery was reamed, minimal cartilage was removed. Appropriate soft tissue resection was carried out. Minimal cartilage was removed to preserve the underlying bone. Next the baseplate was inserted with the help of an billing adjudicator A central screw was applied to the final implant on the back table and inserted into the drill hole in the glenoid. It was rotated to align the screws in the appropriate directions. Next a drill guide was used to drill the hole for the screws. Locking and nonlocking screws were used for excellent compression and fixation. The glenosphere was now implanted on top of the baseplate over the guidewire with the screw. The screw was rotated over the glenosphere for excellent fixation. No impingement was noted. A Nik was used to test the stability of baseplate as well as the glenosphere and was found to be very secure. Next, the proximal humerus was prepared. A size one broach was considered to be adequate. The 0 liner trial was inserted. This was found to be adequate with 3 mm of shuck as the final implant was to sit a little proud. The final stem and liner was opened up. The final stem was inserted and was Press-Fit with excellent rotational stability. The joint was now trialed again with a 0 mm liner and was noticed to be excellent. A final 0 mm constrained liner implant was opened up and inserted on the humeral stem. This was tapped and excellent fixation was noted. Excellent stability and range of motion was noted, abduction of 120 and flexion up to 120 degrees. Shuck test was approximately 2- 3 mm. The patient was fully paralyzed and this was considered to be acceptable as the greater tuberosity and the lesser tuberosity were not fixed. The shoulder did not dislocate with adduction, internal rotation and extension or with abduction and external rotation. The greater tuberosity was now fixed back over the stem and to the lesser tube rosity/subscapularis. Lesser tuberosity was fractured but most of it was still intact and attached to the proximal humerus. The subscapularis tendon was closed along with the sutures. Three horizontal and two vertical sutures were used to reattach the greater tuberosity and attached this time to the subscapularis. Excellent stability was noted. Very good reduction of the tuber osity was also noted. Irrigation was given with bulb syringe lavage with bacitracin and normal saline, Betadine and vancomycin powder was applied as well. All bony debris was also removed. C-arm was used throughout the procedure for evaluation of guidewi re, baseplate and glenosphere position and finally humerus stem position and joint reduction. The deep tissue, skin and the subcutaneous tissue were closed with 0 Vicryl, 2-0 Vicryl and ian. Sterile dressing was applied. The patient was placed in a shoulder immobilizer. Condition Good Disposition Still a Patient SHELLEY ROSE MD Dec 20, 2024 15:08
--- NOTE | 2024-12-20 15:09 | ECG ---
[facility] Test Date: 2024-12-19 Test Time: 01:08:05 Pat Name: LISSET PLASENCIA Department: Respiratoy Room: 0223T Gender: F Clinical Research Nurse Coordinator: : 1940 Requested By: GRISELDA BRAVO Order Number: [id number] Reading MD: Gt Crouch Measurements Intervals [place] Rate: 62 P: 73 WA: 174 QRS: -11 QRSD: 87 T: 14 QT: 554 QTc: 563 Interpretive Statements Sinus rhythm Borderline T abnormalities, anterior leads Prolonged QT interval Electronically Signed On 12-24-2024 11:03:39 PST by Gt Crouch Please click the below link to view image of tracing.
[2024-12-20] MEDS: LACTATED RINGER'S 1,000 ML IV SCH (15:15)
[2024-12-20] MEDS: ALBUTEROL SULF 2.5 MG/0.5ML(0.5%) NEB SOLN NEB ONE (15:45)
[2024-12-20] MEDS: IPRATROPIUM BROM 0.5 MG/2.5ML INH SOL NEB ONE (15:45)
[2024-12-20] MEDS: IPRATROPIUM BROM 0.5 MG/2.5ML INH SOL ONE (15:57)
[2024-12-20] MEDS: ALBUTEROL SULF 2.5 MG/0.5ML(0.5%) NEB SOLN ONE (15:58)
--- NOTE | 2024-12-20 16:37 | DVH ---
CLINICAL INDICATION: RIGHT SHOULDER REVERSE ARTHROPLASTY TECHNIQUE: 7 radiographic views of the intraoperative images of surgery on the right shoulder. were obtained. Comparison: XY R SHOULDER 2+ VIEW XRAY on DOS: 12/18/24 FINDINGS/IMPRESSION: 24.1 seconds total fluoro time Cumulative dose: 1.2 mGy
--- NOTE | 2024-12-20 16:38 | DVH ---
C-ARM FLUOROSCOPY: PROCEDURE: Right reverse shoulder arthroplasty FLUOROSCOPY TIME: 24.1 seconds Air Kerma: 1.2 mgy FINDINGS: Spot intraoperative C arm radiographs demonstrating placement of a reverse shoulder arthroplasty on the right. IMPRESSION: 1. Please refer to surgical report for detailed findings.
[2024-12-20] MEDS: ACETAMINOPHEN IV 1000 MG/100ML (10MG/ML) IV ONE (16:57)
[2024-12-20] MEDS: ceFAZolin 1GM/50ML 50 ML IV SCH (18:31)
[2024-12-20] MEDS: DOCUSATE SOD 100 MG CAP PO SCH (23:00)
[2024-12-21] VITALS (9 sets, daily range): BP systolic 137–167; BP diastolic 66–86; PULSE 73–90; RESP 16–19; TEMP 97.4–98.8; O2SAT 94–99
[2024-12-21 07:11] LABS: Hematocrit 30.6 % (36.0-46.0); Hemoglobin 10.9 g/dL (12.2-16.2)
[2024-12-21 07:31] LABS: Alanine Aminotransferase 11 U/L (7-40); Alkaline Phosphatase 55 U/L (46-116)
[2024-12-21 07:32] LABS: Anion Gap 9 (5-15); BUN/Creatinine Ratio 17.9 (10.0-20.0); Blood Urea Nitrogen 10 mg/dL (9-23); Carbon Dioxide 27 mmol/L (20-31); Chloride 99 mmol/L (98-107); Potassium 3.9 mmol/L (3.5-5.1); Total Protein 6.1 g/dL (5.7-8.2)
[2024-12-21 07:33] LABS: Albumin 3.6 g/dL (3.2-4.8)
[2024-12-21 07:35] LABS: Bilirubin, Total 1.4 mg/dL (0.2-1.0); Calcium 8.6 mg/dL (8.7-10.4); Glucose 138 mg/dL (74-106); Sodium 135 mmol/L (136-145)
[2024-12-21] MEDS ORDERED: HYDROcodone-ACET 5/325MG TAB PO PRN (07:45)
--- NOTE | 2024-12-21 07:47 | DVHPN2 ---
Progress Note - Dictate Date Seen: Dec 21, 2024 Medical Necessity Reason Pt with a Central, PICC or Fol: No Subjective Patient was lying comfortably in bed during my evaluation reports some postoperative shoulder pain that is only somewhat improved with the help of pain medication but reports that she has only been given Dilaudid so far which has somewhat helped but continues to have pain. Patient denies having gotten up and walked with physical therapy as of yet and has remained in her bed and in her shoulder immobilizer. Patient was otherwise feeling well denying any other complaints or concerns during my evaluation. vital signs Vital Sign Date Time Temp Pulse Resp B/P (MAP) Pulse Ox O2 Delivery O2 Flow Rate FiO2 12/21/24 05:53 77 16 158/60 12/21/24 05:08 98.8 96 98.8 12/20/24 20:00 Nasal Cannula* 5 40 Total Intake and Output 12/20/24 12/20/24 12/21/24 15:00 23:00 07:00 Intake Total 220 ml 50 ml 1760 ml Output Total 300 ml 650 ml Balance 220 ml -250 ml 1110 ml medications Current Medications Medications Dose Ordered Sig/Moise Route Start Time Stop Time Status Last Admin Dose Admin Ondansetron HCl 4 mg Q4HP PRN IV 12/18/24 22:30 Acetaminophen/ Hydrocodone Bitart 1 tab Q4HPRN PRN PO 12/18/24 22:30 12/19/24 18:01 1 TAB Hydromorphone HCl 0.25 mg Q4HPRN PRN IV 12/18/24 22:30 12/21/24 05:23 0.25 MG Citalopram Hydrobromide 10 mg DAILY PO 12/19/24 10:00 12/19/24 09:26 10 MG Pantoprazole Sodium 40 mg DAILY IV 12/19/24 10:00 12/20/24 08:59 40 MG Acetaminophen/ Hydrocodone Bitart 1 tab Q4HPRN PRN PO 12/18/24 23:00 12/20/24 07:48 1 TAB Lactated Ringer's 1,000 ml @ 100 mls/hr Q10H IV 12/20/24 15:15 12/21/24 01:39 100 MLS/HR Cefazolin Sodium 50 ml @ 50 mls/hr Q8H IV 12/20/24 15:15 12/21/24 08:14 12/21/24 06:15 50 MLS/HR Docusate Sodium 100 mg Q12HR PO 12/20/24 22:00 12/20/24 23:00 100 MG objective A&O x4 in no acute distress Shoulder range of motion not fully evaluated as patient remains in shoulder immobilizer Aquacel dressing clean, dry, and intact Mild distal edema but no calf tenderness to palpation Neurovascularly intact with cap refill less than 2 seconds laboratory and microbiology Laboratory Tests 12/21/24 06:40 12/19/24 05:28 Test 12/21/24 06:40 Range/Units Serum Glucose 138 H 74-106 mg/dL Assessment/Plan S/P reverse shoulder arthroplasty postop day one Continue current management as well as pain control and added pain medication orders to help control pain better and placed orders yesterday for physical therapy to help with gait training while in her shoulder immobilizer. Patient may be considered for discharge once pain is under control and patient remains medically stable. I advised the patient to remain in his shoulder immobilizer strictly nonweightbearing for six weeks and to maintain her dressings clean, dry, and intact and to call our office if she has any questions or concerns. I advised the patient to follow up with our office in 10-14 days for her 1st postoperative evaluation. She understood and agreed. Thank you for allowing us to participate in the care of your patient. Plan discussed with: Patient AUSTIN,JENLINO MURRAY Dec 21, 2024 07:47
[2024-12-21] MEDS: HYDROcodone-ACET 10/325MG TAB PO PRN (08:42)
--- NOTE | 2024-12-21 09:39 | DVHPN2 ---
Reviewed: Care Plan, H&P, Labs, Medications, Previous Orders, Radiology Changes from previous H/P or p: No Changes Eyes: No Pain, No Vision change, No Conjunctivae inflammation, No Eyelid inflammation, No Other, No Redness ENT: No Ear pain, No Ear discharge, No Nose pain, No Nose discharge, No Nose congestion, No Mouth pain, No Mouth swelling, No Throat pain, No Throat swelling, No Other Cardiovascular: No Chest Pain, No Palpitations, No Orthopnea, No Paroxysmal Noc. Dyspnea, No Edema, No Lt Headedness, No Other Respiratory: No Cough, No Dry, No Shortness of breath, No SOB with excertion, No Wheezing, No Hemoptysis, No Pleuritic Pain, No Sputum, No Other Gastrointestinal: No Nausea, No Vomiting, No Abdominal Pain, No Diarrhea, No Constipation, No Melena, No Hematochezia, No Other Genitourinary: No Dysuria, No Frequency, No Incontinence, No Hematuria, No Retention, No Other Musculoskeletal: No other, No neck pain; shoulder pain; No arm pain; back pain; No hand pain, No leg pain, No foot pain Skin: No Rash, No Lesions, No Jaundice, No Bruising, No Other Objective Vitals Vital Signs Date Time Temp Pulse Resp B/P (MAP) Pulse Ox O2 Delivery O2 Flow Rate FiO2 12/21/24 05:53 77 16 158/60 12/21/24 05:08 98.8 96 98.8 12/20/24 20:00 Nasal Cannula* 5 40 Intake/Output Intake and Output 12/21/24 07:00 Intake Total 2030 ml Output Total 950 ml Balance 1080 ml Intake Oral 360 ml IV Total 1670 ml Output Urine Total 950 ml Medications Current Medications Medications Dose Ordered Sig/Moise Route Start Time Stop Time Status Last Admin Dose Admin Ondansetron HCl 4 mg Q4HP PRN IV 12/18/24 22:30 Hydromorphone HCl 0.25 mg Q4HPRN PRN IV 12/18/24 22:30 Hold 12/21/24 05:23 0.25 MG Citalopram Hydrobromide 10 mg DAILY PO 12/19/24 10:00 12/19/24 09:26 10 MG Pantoprazole Sodium 40 mg DAILY IV 12/19/24 10:00 12/20/24 08:59 40 MG Lactated Ringer's 1,000 ml @ 100 mls/hr Q10H IV 12/20/24 15:15 12/21/24 01:39 100 MLS/HR Docusate Sodium 100 mg Q12HR PO 12/20/24 22:00 12/20/24 23:00 100 MG Acetaminophen/ Hydrocodone Bitart 1 tab Q4HP PRN PO 12/21/24 07:45 12/21/24 08:42 1 TAB Hydromorphone HCl 2 mg Q4HP PRN PO 12/21/24 07:45 Acetaminophen/ Hydrocodone Bitart 1 tab Q4HPRN PRN PO 12/21/24 07:45 Laboratory Results Laboratory Tests 12/19/24 05:28 12/21/24 06:40 Chemistry Test 12/21/24 06:40 Albumin 3.6 g/dL (3.2-4.8) Calcium Level 8.6 mg/dL (8.7-10.4) L Total Protein 6.1 g/dL (5.7-8.2) LFT Test 12/21/24 06:40 Alanine Aminotransferase (ALT) 11 U/L (7-40) Alkaline Phosphatase 55 U/L (46-116) Aspartate Amino Transferase (AST) 19 U/L (13-40) Total Bilirubin 1.4 mg/dL (0.2-1.0) H Urinalysis Test 12/18/24 02:00 Urine Color Yellow (Yellow) Urine Clarity Clear (Clear) Urine pH 6.5 (5.0-9.0) Urine Specific [place] 1.021 (1.001-1.035) Urine Protein Negative (Negative) Urine Ketones 2+ (Negative) H Urine Blood Negative /uL (Negative) Urine Nitrite Negative (Negative) Urine Bilirubin Negative (Negative) Urine Urobilinogen Normal mg/dL (Negative) Urine Leukocyte Esterase Negative /uL (Negative) Urine RBC None seen /hpf (0 - 4) Urine Microscopic WBC < 1 /HPF (0-5) Urine Squamous Epithelial Cells None seen /hpf (<5) Urine Bacteria None seen /hpf (None Seen) Urine Glucose Normal mg/dL (Normal) Labs and/or images reviewed: Labs reviewed by me, Image(s) reviewed by me Assessment/Plan Assessment/Plan Acute displaced Community fracture proximal right humerus status post mechanical fall: Status post reverse total shoulder arthroplasty (RTSA) by Dr Rose 12-20-24 Displaced fracture scapula status post fall Small left pleural effusion Hyperbilirubinemia bilirubin 1.6 Hypertension Depression: Celexa Obesity BMI of 46 Time spent 50 minutes Advanced care planning time 20 minutes Patient is full code Patient is requesting home health at the time of discharge Plan discussed with: Patient Date of Service: Dec 21, 2024 Billing Provider: VESTA PRIEST MD Common Visit Codes: [id number] INP/OBS CARE(HIGH) VESTA PRIEST MD Dec 21, 2024 09:39
[2024-12-22] VITALS (9 sets, daily range): BP systolic 113–181; BP diastolic 62–78; PULSE 66–98; RESP 16–20; TEMP 97.3–98.6; O2SAT 93–99
--- NOTE | 2024-12-22 08:42 | DVHPN2 ---
Reviewed: Care Plan, H&P, Labs, Medications, Previous Orders, Radiology Changes from previous H/P or p: No Changes Eyes: No Pain, No Vision change, No Conjunctivae inflammation, No Eyelid inflammation, No Other, No Redness ENT: No Ear pain, No Ear discharge, No Nose pain, No Nose discharge, No Nose congestion, No Mouth pain, No Mouth swelling, No Throat pain, No Throat swelling, No Other Cardiovascular: No Chest Pain, No Palpitations, No Orthopnea, No Paroxysmal Noc. Dyspnea, No Edema, No Lt Headedness, No Other Respiratory: No Cough, No Dry, No Shortness of breath, No SOB with excertion, No Wheezing, No Hemoptysis, No Pleuritic Pain, No Sputum, No Other Gastrointestinal: No Nausea, No Vomiting, No Abdominal Pain, No Diarrhea, No Constipation, No Melena, No Hematochezia, No Other Genitourinary: No Dysuria, No Frequency, No Incontinence, No Hematuria, No Retention, No Other Musculoskeletal: No other, No neck pain; shoulder pain; No arm pain; back pain; No hand pain, No leg pain, No foot pain Skin: No Rash, No Lesions, No Jaundice, No Bruising, No Other Objective Vitals Vital Signs Date Time Temp Pulse Resp B/P (MAP) Pulse Ox O2 Delivery O2 Flow Rate FiO2 12/22/24 05:00 97.3 72 17 143/68 (93) 98 97.3 12/21/24 20:00 Nasal Cannula* 5 40 Intake/Output Intake and Output 12/22/24 07:00 Intake Total 900 ml Output Total 650 ml Balance 250 ml Intake Oral 900 ml Output Urine Total 650 ml Medications Current Medications Medications Dose Ordered Sig/Moise Route Start Time Stop Time Status Last Admin Dose Admin Ondansetron HCl 4 mg Q4HP PRN IV 12/18/24 22:30 Hydromorphone HCl 0.25 mg Q4HPRN PRN IV 12/18/24 22:30 Hold 12/21/24 05:23 0.25 MG Citalopram Hydrobromide 10 mg DAILY PO 12/19/24 10:00 12/21/24 10:06 10 MG Pantoprazole Sodium 40 mg DAILY IV 12/19/24 10:00 12/21/24 10:06 40 MG Lactated Ringer's 1,000 ml @ 100 mls/hr Q10H IV 12/20/24 15:15 12/21/24 21:15 100 MLS/HR Docusate Sodium 100 mg Q12HR PO 12/20/24 22:00 12/21/24 21:06 100 MG Acetaminophen/ Hydrocodone Bitart 1 tab Q4HP PRN PO 12/21/24 07:45 12/22/24 04:40 1 TAB Hydromorphone HCl 2 mg Q4HP PRN PO 12/21/24 07:45 12/22/24 00:18 2 MG Acetaminophen/ Hydrocodone Bitart 1 tab Q4HPRN PRN PO 12/21/24 07:45 Laboratory Results Laboratory Tests 12/19/24 05:28 12/21/24 06:40 Urinalysis Test 12/18/24 02:00 Urine Color Yellow (Yellow) Urine Clarity Clear (Clear) Urine pH 6.5 (5.0-9.0) Urine Specific [place] 1.021 (1.001-1.035) Urine Protein Negative (Negative) Urine Ketones 2+ (Negative) H Urine Blood Negative /uL (Negative) Urine Nitrite Negative (Negative) Urine Bilirubin Negative (Negative) Urine Urobilinogen Normal mg/dL (Negative) Urine Leukocyte Esterase Negative /uL (Negative) Urine RBC None seen /hpf (0 - 4) Urine Microscopic WBC < 1 /HPF (0-5) Urine Squamous Epithelial Cells None seen /hpf (<5) Urine Bacteria None seen /hpf (None Seen) Urine Glucose Normal mg/dL (Normal) Labs and/or images reviewed: Labs reviewed by me, Image(s) reviewed by me Assessment/Plan Assessment/Plan Acute displaced Community fracture proximal right humerus status post mechanical fall: Status post reverse total shoulder arthroplasty (RTSA) by Dr Rose 12-20-24 Displaced fracture scapula status post fall Small left pleural effusion Hyperbilirubinemia bilirubin 1.6 Hypertension Depression: Celexa Obesity BMI of 46 Time spent 52 minutes Advanced care planning time 20 minutes Patient is full code Patient is requesting home health at the time of discharge Plan discussed with: Patient Date of Service: Dec 22, 2024 Billing Provider: VESTA PRIEST MD Common Visit Codes: [id number] INP/OBS CARE(HIGH) VESTA PRIEST MD Dec 22, 2024 08:42
[2024-12-23] VITALS (9 sets, daily range): BP systolic 114–147; BP diastolic 66–107; PULSE 61–97; RESP 16–20; TEMP 97.7–98.6; O2SAT 85–99
--- NOTE | 2024-12-23 09:05 | DVHPN2 ---
Reviewed: Care Plan, H&P, Labs, Medications, Previous Orders, Radiology Changes from previous H/P or p: No Changes Eyes: No Pain, No Vision change, No Conjunctivae inflammation, No Eyelid inflammation, No Other, No Redness ENT: No Ear pain, No Ear discharge, No Nose pain, No Nose discharge, No Nose congestion, No Mouth pain, No Mouth swelling, No Throat pain, No Throat swelling, No Other Cardiovascular: No Chest Pain, No Palpitations, No Orthopnea, No Paroxysmal Noc. Dyspnea, No Edema, No Lt Headedness, No Other Respiratory: No Cough, No Dry, No Shortness of breath, No SOB with excertion, No Wheezing, No Hemoptysis, No Pleuritic Pain, No Sputum, No Other Gastrointestinal: No Nausea, No Vomiting, No Abdominal Pain, No Diarrhea, No Constipation, No Melena, No Hematochezia, No Other Genitourinary: No Dysuria, No Frequency, No Incontinence, No Hematuria, No Retention, No Other Musculoskeletal: No other, No neck pain; shoulder pain; No arm pain; back pain; No hand pain, No leg pain, No foot pain Skin: No Rash, No Lesions, No Jaundice, No Bruising, No Other Objective Vitals Vital Signs Date Time Temp Pulse Resp B/P (MAP) Pulse Ox O2 Delivery O2 Flow Rate FiO2 12/23/24 05:00 97.8 72 17 142/82 (102) 92 97.8 12/22/24 20:00 Nasal Cannula* 5 40 Intake/Output Intake and Output 12/23/24 07:00 Intake Total 1530 ml Output Total 1930 ml Balance -400 ml Intake Oral 1230 ml IV Total 300 ml Output Urine Total 1930 ml Medications Current Medications Medications Dose Ordered Sig/Moise Route Start Time Stop Time Status Last Admin Dose Admin Ondansetron HCl 4 mg Q4HP PRN IV 12/18/24 22:30 Hydromorphone HCl 0.25 mg Q4HPRN PRN IV 12/18/24 22:30 Hold 12/21/24 05:23 0.25 MG Citalopram Hydrobromide 10 mg DAILY PO 12/19/24 10:00 12/22/24 08:51 10 MG Pantoprazole Sodium 40 mg DAILY IV 12/19/24 10:00 12/22/24 08:51 40 MG Docusate Sodium 100 mg Q12HR PO 12/20/24 22:00 12/22/24 22:07 100 MG Acetaminophen/ Hydrocodone Bitart 1 tab Q4HP PRN PO 12/21/24 07:45 12/23/24 00:45 1 TAB Hydromorphone HCl 2 mg Q4HP PRN PO 12/21/24 07:45 12/22/24 08:51 2 MG Acetaminophen/ Hydrocodone Bitart 1 tab Q4HPRN PRN PO 12/21/24 07:45 Laboratory Results Laboratory Tests 12/19/24 05:28 12/21/24 06:40 Urinalysis Test 12/18/24 02:00 Urine Color Yellow (Yellow) Urine Clarity Clear (Clear) Urine pH 6.5 (5.0-9.0) Urine Specific [place] 1.021 (1.001-1.035) Urine Protein Negative (Negative) Urine Ketones 2+ (Negative) H Urine Blood Negative /uL (Negative) Urine Nitrite Negative (Negative) Urine Bilirubin Negative (Negative) Urine Urobilinogen Normal mg/dL (Negative) Urine Leukocyte Esterase Negative /uL (Negative) Urine RBC None seen /hpf (0 - 4) Urine Microscopic WBC < 1 /HPF (0-5) Urine Squamous Epithelial Cells None seen /hpf (<5) Urine Bacteria None seen /hpf (None Seen) Urine Glucose Normal mg/dL (Normal) Labs and/or images reviewed: Labs reviewed by me, Image(s) reviewed by me Assessment/Plan Assessment/Plan Acute displaced Community fracture proximal right humerus status post mechanical fall: Status post reverse total shoulder arthroplasty (RTSA) by Dr Rose 12-20-24 Displaced fracture scapula status post fall Small left pleural effusion Hyperbilirubinemia bilirubin 1.6 Hypertension Depression: Celexa Obesity BMI of 46 RN Rowan at bedside Patient is requesting to be discharged today Time spent 52 minutes Advanced care planning time 20 minutes Patient is full code Patient is requesting home health at the time of discharge Plan discussed with: Patient Date of Service: Dec 23, 2024 Billing Provider: VETSA PRIEST MD Common Visit Codes: [id number] INP/OBS CARE(HIGH) VESTA PRIEST MD Dec 23, 2024 09:05
--- NOTE | 2024-12-23 09:18 | DVHDS2 ---
Discharge Summary Date of Admission Dec 18, 2024 at 22:23 Date of Discharge: Dec 23, 2024 Admitting Diagnosis Fracture right humerus Wounds: Fracture right humerus Labs/Diagnostic Data: Laboratory Results Test 12/21/24 06:40 12/20/24 04:36 12/19/24 05:28 12/18/24 19:48 Hemoglobin 10.9 g/dL (12.2-16.2) Hematocrit 30.6 % (36.0-46.0) Sodium Level 135 mmol/L (136-145) Potassium Level 3.9 mmol/L (3.5-5.1) Chloride Level 99 mmol/L (98-107) Carbon Dioxide Level 27 mmol/L (20-31) Anion Gap 9 (5-15) Blood Urea Nitrogen 10 mg/dL (9-23) Creatinine 0.56 mg/dL (0.550-1.02) Glomerular Filtration Rate Calc 89 mL/min (>90) BUN/Creatinine Ratio 17.9 (10.0-20.0) Serum Glucose 138 mg/dL (74-106) Calcium Level 8.6 mg/dL (8.7-10.4) Total Bilirubin 1.4 mg/dL (0.2-1.0) Aspartate Amino Transferase (AST) 19 U/L (13-40) Alanine Aminotransferase (ALT) 11 U/L (7-40) Alkaline Phosphatase 55 U/L (46-116) Total Protein 6.1 g/dL (5.7-8.2) Albumin 3.6 g/dL (3.2-4.8) POC Glucose 153 mg/dl (70-106) White Blood Count 7.0 10^3/uL (4.4-10.8) Red Blood Count 3.79 10^6/uL (4.0-5.20) Mean Corpuscular Volume 93.7 fL (80.0-100.0) Mean Corpuscular Hemoglobin 32.2 pg (28.0-32.0) Mean Corpuscular Hemoglobin Concent 34.3 g/dL (32.0-36.0) Red Cell Distribution Width 13.5 % (11.8-14.3) Platelet Count 228 10^3/uL (140-450) Mean Platelet Volume 7.9 fL (6.9-10.8) Neutrophils (%) (Auto) 80.9 % (37.0-80.0) Lymphocytes (%) (Auto) 12.8 % (10.0-50.0) Monocytes (%) (Auto) 5.7 % (0.0-12.0) Eosinophils (%) (Auto) 0.1 % (0.0-7.0) Basophils (%) (Auto) 0.5 % (0.0-2.0) Neutrophils # (Auto) 5.7 10 ^3/uL (1.6-8.6) Lymphocytes # (Auto) 0.9 10 ^3/uL (0.4-5.4) Monocytes # (Auto) 0.4 10 ^3/uL (0-1.3) Eosinophils # (Auto) 0 10 ^3/uL (0-0.8) Basophils # (Auto) 0 10 ^3/uL (0-0.2) Nucleated Red Blood Cells 0.1 % Prothrombin Time 10.7 sec (9.3-11.8) Prothrombin Time INR 1.01 (0.9-1.15) Activated Partial Thromboplast Time 32.5 SEC (24.5-34.5) B-Type Natriuretic Peptide 52.11 pg/mL (0-100) Test 12/18/24 02:00 Urine Color Yellow (Yellow) Urine Clarity Clear (Clear) Urine pH 6.5 (5.0-9.0) Urine Specific [place] 1.021 (1.001-1.035) Urine Protein Negative (Negative) Urine Ketones 2+ (Negative) Urine Blood Negative /uL (Negative) Urine Nitrite Negative (Negative) Urine Bilirubin Negative (Negative) Urine Urobilinogen Normal mg/dL (Negative) Urine Leukocyte Esterase Negative /uL (Negative) Urine RBC None seen /hpf (0 - 4) Urine Microscopic WBC < 1 /HPF (0-5) Urine Squamous Epithelial Cells None seen /hpf (<5) Urine Bacteria None seen /hpf (None Seen) Urine Glucose Normal mg/dL (Normal) Other Laboratory Tests 12/21/24 06:40 12/19/24 05:28 Brief Hx & Hospital Course: 84-year-old female on pain management for chronic back pain had a mechanical fall and sustained fracture right proximal humerus underwent reverse total shoulder arthroplasty by Dr. Rose on 12/20/2024 received pain medications. Requesting to be discharged home on home health discharged she has a [place] at home given by pain management She will follow up with the ortho in 10 days Consults/Reason for consult Orthopedic Dr Rose Operations or Procedures Reverse total shoulder arthroplasty Condition at Discharge: Fair Final Diagnosis/Problems List Acute displaced Community fracture proximal right humerus status post mechanical fall: Status post reverse total shoulder arthroplasty (RTSA) by Dr Rose 12-20-24 Displaced fracture scapula status post fall Small left pleural effusion Hyperbilirubinemia bilirubin 1.6 Hypertension Depression: Celexa Discharge Disposition: Home with Health Services Discharge Instruct/Medications Diet: Regular Activity: Light activity Follow Up/Referral: Resume all your pain medications prescribed by pain management Follow up Up with your primary Dr in one week Follow up with the orthopedic Dr in 10 days Medications: None Patient says she has [place] at home given by pain management Dr Scheduled Escitalopram Oxalate (Escitalopram Oxalate), 1 TAB PO DAILY, (Reported) Simvastatin (Simvastatin), 20 MG PO DAILY, (Reported) Miscellaneous Medications Aspirin (Aspirin), 81 MG PO, (Reported) Hydrocodone-Acetaminophen (Hydrocodone/Acetaminophen 5-325 mg), 1.5 TAB PO, (Reported) 39 (Time taken for discharge summary 39 minutes) Discharge Statement: "Patient was advised to return to the ER or call 911 if any headaches, dizziness, shortness of breath, chest pain, abdominal pain, bleeding, fevers, or worsening of medical condition. Patient was counseled about treatment plan, medications, possible side effects, patientverbalized understanding. All questions were answered to the best of my ability. This discharge took greater then 30 minutes in planning, reviewing documentation, counseling the patient, and discussing with other team members." ASSESSMENT ASSESSMENT Hospital Course Uneventful Assessment Acute displaced Community fracture proximal right humerus status post mechanical fall: Status post reverse total shoulder arthroplasty (RTSA) by Dr Rose 12-20-24 Displaced fracture scapula status post fall Small left pleural effusion Hyperbilirubinemia bilirubin 1.6 Hypertension Depression: Celexa Date of Service: Dec 23, 2024 Billing Provider: VESTA PRIEST MD Common Visit Codes: [id number] DISCH DAY >30min VESTA PRIEST MD Dec 23, 2024 09:18
[2024-12-24] VITALS (7 sets, daily range): BP systolic 122–147; BP diastolic 68–78; PULSE 67–82; RESP 18–20; TEMP 97.9–98.7; O2SAT 88–98
[2024-12-24] MEDS: CALCIUM CARB 500 MG CHEW TAB PO ONE (03:02)
--- NOTE | 2024-12-24 11:16 | DVHPN2 ---
Reviewed: Care Plan, H&P, Labs, Medications, Previous Orders, Radiology Changes from previous H/P or p: No Changes Eyes: No Pain, No Vision change, No Conjunctivae inflammation, No Eyelid inflammation, No Other, No Redness ENT: No Ear pain, No Ear discharge, No Nose pain, No Nose discharge, No Nose congestion, No Mouth pain, No Mouth swelling, No Throat pain, No Throat swelling, No Other Cardiovascular: No Chest Pain, No Palpitations, No Orthopnea, No Paroxysmal Noc. Dyspnea, No Edema, No Lt Headedness, No Other Respiratory: No Cough, No Dry, No Shortness of breath, No SOB with excertion, No Wheezing, No Hemoptysis, No Pleuritic Pain, No Sputum, No Other Gastrointestinal: No Nausea, No Vomiting, No Abdominal Pain, No Diarrhea, No Constipation, No Melena, No Hematochezia, No Other Genitourinary: No Dysuria, No Frequency, No Incontinence, No Hematuria, No Retention, No Other Musculoskeletal: No other, No neck pain; shoulder pain; No arm pain; back pain; No hand pain, No leg pain, No foot pain Skin: No Rash, No Lesions, No Jaundice, No Bruising, No Other Objective Vitals Vital Signs Date Time Temp Pulse Resp B/P (MAP) Pulse Ox O2 Delivery O2 Flow Rate FiO2 12/24/24 10:00 98 Room Air* 0 21 12/24/24 09:00 98.2 72 18 147/78 (101) 98.2 Intake/Output Intake and Output 12/24/24 07:00 Intake Total 840 ml Balance 840 ml Intake Oral 840 ml # Voids 3 Medications Current Medications Medications Dose Ordered Sig/Moise Route Start Time Stop Time Status Last Admin Dose Admin Ondansetron HCl 4 mg Q4HP PRN IV 12/18/24 22:30 Hydromorphone HCl 0.25 mg Q4HPRN PRN IV 12/18/24 22:30 Hold 12/21/24 05:23 0.25 MG Citalopram Hydrobromide 10 mg DAILY PO 12/19/24 10:00 12/24/24 09:35 10 MG Pantoprazole Sodium 40 mg DAILY IV 12/19/24 10:00 12/24/24 09:35 40 MG Docusate Sodium 100 mg Q12HR PO 12/20/24 22:00 12/24/24 09:35 100 MG Acetaminophen/ Hydrocodone Bitart 1 tab Q4HP PRN PO 12/21/24 07:45 12/24/24 08:28 1 TAB Hydromorphone HCl 2 mg Q4HP PRN PO 12/21/24 07:45 12/22/24 08:51 2 MG Acetaminophen/ Hydrocodone Bitart 1 tab Q4HPRN PRN PO 12/21/24 07:45 Laboratory Results Laboratory Tests 12/19/24 05:28 12/21/24 06:40 Urinalysis Test 12/18/24 02:00 Urine Color Yellow (Yellow) Urine Clarity Clear (Clear) Urine pH 6.5 (5.0-9.0) Urine Specific [place] 1.021 (1.001-1.035) Urine Protein Negative (Negative) Urine Ketones 2+ (Negative) H Urine Blood Negative /uL (Negative) Urine Nitrite Negative (Negative) Urine Bilirubin Negative (Negative) Urine Urobilinogen Normal mg/dL (Negative) Urine Leukocyte Esterase Negative /uL (Negative) Urine RBC None seen /hpf (0 - 4) Urine Microscopic WBC < 1 /HPF (0-5) Urine Squamous Epithelial Cells None seen /hpf (<5) Urine Bacteria None seen /hpf (None Seen) Urine Glucose Normal mg/dL (Normal) Labs and/or images reviewed: Labs reviewed by me, Image(s) reviewed by me Assessment/Plan Assessment/Plan Acute displaced Community fracture proximal right humerus status post mechanical fall: Status post reverse total shoulder arthroplasty (RTSA) by Dr Rose 12-20-24 Displaced fracture scapula status post fall Small left pleural effusion Hyperbilirubinemia bilirubin 1.6 Hypertension Depression: Celexa Obesity BMI of 46 TAMMY Donahue at bedside Patient was discharged on 12/23/2024 on home health web services architect working on home health Plan discussed with: Patient Date of Service: Dec 24, 2024 Billing Provider: VESTA PRIEST MD Common Visit Codes: [id number] INP/OBS CARE(HIGH) VESTA PRIEST MD Dec 24, 2024 11:16
== END 2024-12-24 18:10 | disposition left against medical advice (07) | DRG 483 ==
LOC: EDBD 18:28 → ER 18:28 → OVERFLOW 22:23 → CENTRAL 23:57 → TELE-CENTR 12-22 01:32
PROVIDERS: ADMIT Hospitalist; ATTEND Hospitalist
PROC: 0RRJ00Z Replacement of Right Shoulder Joint with Reverse Ball and Socket Synthetic Substitute, Open Approach (ICD-10-PCS; principal; 2024-12-20 12:15)
DX: S42.251A Displaced fracture of greater tuberosity of right humerus, initial encounter for closed fracture (principal); J90 Pleural effusion, not elsewhere classified; S09.8XXA Other specified injuries of head, initial encounter; S42.191A Fracture of other part of scapula, right shoulder, initial encounter for closed fracture; S42.261A Displaced fracture of lesser tuberosity of right humerus, initial encounter for closed fracture; I10 Essential (primary) hypertension; F32.A Depression, unspecified; E66.9 Obesity, unspecified; Z68.42 Body mass index [BMI] 45.0-49.9, adult; E80.6 Other disorders of bilirubin metabolism; E78.5 Hyperlipidemia, unspecified; F41.9 Anxiety disorder, unspecified; K21.9 Gastro-esophageal reflux disease without esophagitis; M54.9 Dorsalgia, unspecified; W01.0XXA Fall on same level from slipping, tripping and stumbling without subsequent striking against object, initial encounter; Z53.29 Procedure and treatment not carried out because of patient's decision for other reasons; M81.0 Age-related osteoporosis without current pathological fracture; G89.29 Other chronic pain; S80.01XA Contusion of right knee, initial encounter; Z83.3 Family history of diabetes mellitus; Y93.89 Activity, other specified; Y92.89 Other specified places as the place of occurrence of the external cause; Y99.8 Other external cause status
CPT/HCPCS: 36415; 70450; 71045; 73030; 73200; 73562; 76000; 80053; 81001; 82962; 83880; 85014; 85018; 85025; 85610; 85730; 86850; 86900; 86901; 93005; 93306; 94640; 96374; 97110; 97163; 97530; A4565; G0378; J0131; J0330; J1100; J1885; J2250; J2405; J2470; J3490